=== PATIENT | female | born 1970 | race Caucasian/White ===

== ENCOUNTER → 2018-10-13 09:42 | Outpatient (POV) | payer OTHER, SELFPAY | PROVIDERS: Visit Provider Otolaryngology | DX: Z00.00 Encounter for general adult medical examination without abnormal findings (principal) ==

== ENCOUNTER → 2021-08-27 09:21 | Outpatient (CLI) | payer OTHER, SELFPAY | PROVIDERS: Visit Provider Nurse Practitioner | DX: Z20.822 Contact with and (suspected) exposure to COVID-19 (principal) | CPT/HCPCS: C9803; U0003; U0005 ==

== ENCOUNTER 2022-02-17 12:19 | Emergency (ER) | payer OTHER, SELFPAY ==
--- NOTE | 2022-02-17 12:56 | HMH.EDUTC ---
[facility] [place] Clinical Impression: Bronchitis Otitis media Qualifiers: Otitis media type: suppurative Chronicity: acute Laterality: bilateral Recurrence: non-recurrent Spontaneous tympanic membrane rupture: without spontaneous rupture Qualified Code(s): H66.003 - Acute suppurative otitis media without spontaneous rupture of ear drum, bilateral Sinusitis Qualifiers: Sinusitis location: unspecified location Chronicity: acute Recurrence: non-recurrent Qualified Code(s): J01.90 - Acute sinusitis, unspecified Disposition: Home, Self-Care Condition on Discharge: Good Instructions: DI for Sinusitis, DI for Acute Bronchitis, DI for COVID-19 (Suspected or Confirmed ), Preventing the Spread of Coronavirus Discharge Instructions Additional Instructions: Drink plenty of fluids. Take tylenol or ibuprofen for pain or fever. Take the medications as directed. Follow up with your regular doctor. GO TO THE ER FOR ANY WORSENING SYMPTOMS Quarantine until you know the results of your covid-19 test. Notify your school or workplace of your results and follow their instructions regarding return to work/school. Prescriptions: Ondansetron [Zofran 4mg ODT] 4 mg PO Q8HP PRN #12 tab PRN Reason: Nausea Transmission Status: Received by abeo # Benzonatate [Benzonatate 100mg cap] 100 mg PO TIDP PRN #30 cap PRN Reason: Cough Transmission Status: Received by abeo # methylPREDNISolone [Medrol] 4 mg PO DIRECTED 6 Days #21 packet Transmission Status: Received by abeo # Cefdinir [Omnicef 300mg Capsule] 300 mg PO BID #20 cap Transmission Status: Received by abeo # Referrals: Davide Vargas [Primary Care Provider] - Forms: Work/School Release Time of Disposition: 14:03 Medical Decision Making - Medical Records Medical records reviewed: No: I reviewed the patient's medical records. - Ruben Inquiry Pt receiving controlled substance: No Vital Signs: 02/17/22 13:05 02/17/22 14:23 Temperature 98.0 F 98.0 F Temperature Source Oral Pulse Rate 82 Pulse Rate [Left Radial] 82 Respiratory Rate 19 19 Blood Pressure 149/85 H Blood Pressure [Right Arm] 149/85 H Blood Pressure Mean [Right Arm] 106 02 Sat by Pulse Oximetry 98 - Lab Data Lab results reviewed: Yes: I reviewed the patient's lab results. Lab Results 02/17/22 14:20: Chlamy pneumoniae PCR Not detected, Adenovirus (PCR) Not detected, B. pertussis DNA (PCR) Not detected, Coronavirus OC43 (PCR) Not detected, Coronavirus HKU1 (PCR) Not detected, Coronavirus 229E (PCR) Not detected, SARS-CoV-2 (PCR) Detected A, Coronavirus NL63 (PCR) Not detected, Human Metapneumovir PCR Not detected, Influenza A (H1) PCR Not detected, Influ A (H1N1/09) PCR Not detected, Influenza A (H3) PCR Not detected, Influenza Type A (PCR) Not detected, Influenza Type B (PCR) Not detected, M. pneumoniae (PCR) Not detected, Parainfluenza 1 (PCR) Not detected, Parainfluenza 2 (PCR) Not detected, Parainfluenza 3 (PCR) Not detected, Parainfluenza 4 (PCR) Not detected, RSV (PCR) Not detected, Entero/Rhino (PCR) Not detected Orders (Tests/Meds): ED MEDICATIONS Discontinued Medications Generic Name Dose Route Start Last Admin Trade Name Freq PRN Reason Stop Dose Admin Cefdinir 300 mg 02/18/22 14:07 Cefdinir 300mg Capsule PO 02/18/22 14:08 ONCE ONE Cefdinir 300 mg 02/18/22 14:22 Cefdinir 300mg Capsule PO 02/18/22 14:23 ONCE ONE Prednisone 40 mg 02/17/22 14:07 02/17/22 14:18 Prednisone 20mg Tab PO 02/17/22 14:08 40 mg ONCE ONE Administration [facility] [place] - General Stated complaint: head congestion, cough Time Seen by Provider: 02/17/22 13:15 - History of Present Illness Provider Complaint: She c/o sinus and chest congestion for the past 5 days. - Related Data Previous Rx's Medication Instructions Recorded Benzonatate [Benzonata
--- NOTE | 2022-02-17 12:59 | XR_ITS ---
PROCEDURE INFORMATION: Exam: XR Chest Exam date and time: 02/17/2022 12:57 PM Age: 51 years old Clinical indication: Cough and shortness of breath TECHNIQUE: Imaging protocol: XR of the chest. Views: 2 views. COMPARISON: ABDPELW CT ABD PELVIS W/ CONTRAST 09/08/2017 1:29 PM FINDINGS: Lungs: Unremarkable. No consolidation. Pleural spaces: Unremarkable. No pleural effusion. No pneumothorax. Heart/Mediastinum: Unremarkable. No cardiomegaly. Bones/joints: Unremarkable. IMPRESSION: No acute findings.
[2022-02-17 13:05] VITALS: BP 149/85; PULSE 82; RESP 19; TEMP 36.7; O2SAT 98; BMI 32.5
[2022-02-17 14:23] VITALS: BP 149/85; PULSE 82; RESP 19; TEMP 36.7
[2022-02-17 15:22] LABS: Adenovirus,PCR Not Detected (NotDetected); Bordetella Pertussis Not Detected (NotDetected); Chlamydophila Pneumoniae, PCR Not Detected (NotDetected); Coronavirus 229E Not Detected (NotDetected); Coronavirus NL63 Not Detected (NotDetected); Coronavirus OC43 Not Detected (NotDetected); Coronovirus HKU1,PCR Not Detected (NotDetected); Human Metapneumovirus Not Detected (NotDetected); Influenza A, PCR Not Detected (NotDetected); Influenza AH1, 2009 Not Detected (NotDetected); Influenza AH1, PCR Not Detected (NotDetected); Influenza AH3,PCR Not Detected (NotDetected); Influenza B, PCR Not Detected (NotDetected); Mycoplasma Pneumoniae, PCR Not Detected (NotDetected); Parainfluenza 1, PCR Not Detected (NotDetected); Parainfluenza 2, PCR Not Detected (NotDetected); Parainfluenza 3, PCR Not Detected (NotDetected); Parainfluenza 4, PCR Not Detected (NotDetected); Respiratory Syncytial Virus Not Detected (NotDetected); Rhinovirus/Enterovirus Not Detected (NotDetected)
[2022-02-17 16:57] LABS: Coronavirus 19, PCR Detected (NotDetected)
== END 2022-02-17 14:24 | disposition home or self-care (01) ==
PROVIDERS: Emergency Provider Nurse Practitioner Family; PCP Family Medicine
DX: J20.9 Acute bronchitis, unspecified (principal); H66.003 Acute suppurative otitis media without spontaneous rupture of ear drum, bilateral; J01.90 Acute sinusitis, unspecified
CPT/HCPCS: 71046; 87581; 87632; 87798; 99212; C9803; G0463; U0003; U0005

== ENCOUNTER 2022-10-17 10:13 | Emergency (ER) | payer BC, SELFPAY ==
[2022-10-17 11:00] VITALS: BP 168/81; PULSE 109; RESP 20; TEMP 36.9; O2SAT 96; BMI 32.5
--- NOTE | 2022-10-17 11:01 | EXP.UTC ---
Discharge Plan Disposition Patient Disposition: Home, Self-Care Condition: Good Prescriptions Prescriptions: New azithromycin [Zithromax] 250 mg tablet 250 mg PO UD DOSE PK Qty: 6 0RF Rx Instructions: Take two (2) tablets today, then one (1) tablet days #2 thru #5 benzonatate [benzonatate] 100 mg capsule 100 mg PO TIDP PRN (Reason: Cough) Qty: 30 0RF methylprednisolone 4 mg Tablets,Dose Pack 4 mg PO DIRECTED Qty: 21 0RF guaifenesin [Mucinex] 600 mg tablet extended release 12hr 600 - 1,200 mg PO BIDP PRN (Reason: Congestion) Qty: 30 0RF Referrals Follow up/Referrals: Davide Vargas [Primary Care Provider] - See instructions Activity Restrictions/Add. Instructions Additional Instructions/Restrictions: Drink plenty of fluids. Take tylenol or ibuprofen for pain or fever. Take the medications as directed. Follow up with your regular doctor. GO TO THE ER FOR ANY WORSENING SYMPTOMS Clinical Impressions Clinical Impression: Bronchitis, Sinusitis Stand Alone Forms Stand Alone Forms: Work/School Release Instructions Patient Instructions: Sinusitis, DI for Sinusitis, DI for Acute Bronchitis Discharge ED Provider: Victoriano Salamanca [facility] [place] HPI General Stated complaint: Chest Congestion, sore throat Time Seen by Provider: 10/17/22 11:01 History of Present Illness Provider Complaint: She states that for the past 3 days she has had sore throat, sinus congestion, chest congestion, and a productive cough with yellowish sputum. Related Data Previous Rx's Medication Instructions Recorded azithromycin 250 mg tablet 250 mg PO UD DOSE PK #6 tabs 10/17/22 (Zithromax) benzonatate 100 mg capsule 100 mg PO TIDP PRN Cough #30 caps 10/17/22 guaifenesin 600 mg tablet, 600 - 1,200 mg PO BIDP PRN 10/17/22 extended release 12 hr (Mucinex) Congestion #30 tabs methylprednisolone 4 mg tablets in 4 mg PO DIRECTED #21 tabs 10/17/22 a dose pack Allergies Allergy/AdvReac Type Severity Reaction Status Date / Time No Known Drug Allergies Allergy Unknown Verified 10/17/22 11:16 [NO KNOWN DRUG ALLERGIES] [facility] Disclaimer: The information contained in this section may have been updated after the patient was seen, as this information can be updated by other users. Social History Smoking Status: Never smoker alcohol intake: never current occupational status: employed Travel in the last 8 weeks: None ROS Obtained: Yes All systems reviewed & no additional complaints except as documented Constitutional Constitutional: Reports poor appetite Eyes Eyes: Reports system reviewed and no additional complaints, except as documented ENT Ears, Nose, Mouth, and Throat: Reports as per HPI Cardiovascular Cardiovascular: Reports system reviewed and no additional complaints, except as documented and Denies chest pain Respiratory Respiratory: Denies shortness of breath, Reports chest congestion, Reports cough, Denies stridor and Denies wheezing Gastrointestinal Gastrointestingal: Reports system reviewed and no additional complaints, except as documented; Denies abdominal pain, diarrhea or vomiting Musculoskeletal Musculoskeletal: Reports system reviewed and no additional complaints, except as documented and Denies arthralgias Integumentary/Breasts Skin/Breast: Reports system reviewed and no additional complaints, except as documented and Denies rash Neurologic Neurologic: Denies paresthesias Allergic/Immunologic Allergic/Immunologic: Denies wheezing Physical Exam General General appearance: alert and in no apparent distress Eye Eye exam: Present normal appearance, PERRL and EOMI ENT ENT exam: Present mucous membranes moist and normal external ear exam Expanded ENT Exam External ear exam: Present normal external inspection TM/Canal exam: Bilateral TM: erythema and bulging Nose exam: Absent sinus tenderness Nasal speculum exam: Calvin
[2022-10-17 11:12] LABS: UTC Strep Screen (Rapid) Negative (Negative)
[2022-10-17 11:52] VITALS: BP 168/81; PULSE 109; RESP 20; TEMP 36.9; O2SAT 96
== END 2022-10-17 11:52 | disposition home or self-care (01) ==
PROVIDERS: Emergency Provider Nurse Practitioner Family; PCP Family Medicine
DX: J40 Bronchitis, not specified as acute or chronic (principal); J32.9 Chronic sinusitis, unspecified
CPT/HCPCS: 87880; 99212; 99213; G0463

== ENCOUNTER 2023-02-24 16:56 | Emergency (ER) | payer BC, SELFPAY ==
[2023-02-24 17:18] VITALS: BP 161/89; PULSE 90; RESP 16; TEMP 36.8; O2SAT 100; BMI 32.5
--- NOTE | 2023-02-24 17:27 | EXP.UTC ---
Discharge Plan Disposition Patient Disposition: Home, Self-Care Condition: Good Prescriptions Prescriptions: New promethazine-DM 6.25-15 mg/5 mL Syrup 5 ml PO Q6H PRN (Reason: Cough) Qty: 240 0RF azithromycin [Zithromax] 250 mg tablet 250 mg PO UD DOSE PK Qty: 6 0RF Rx Instructions: Take two (2) tablets today, then one (1) tablet days #2 thru #5 methylprednisolone 4 mg Tablets,Dose Pack 4 mg PO DIRECTED Qty: 21 0RF No Action levothyroxine 137 mcg tablet 137 mcg PO DAILY meloxicam 15 mg tablet 15 mg PO NEEDED PRN (Reason: Pain) zolpidem 10 mg tablet 10 mg PO HS escitalopram oxalate 20 mg Tablet 20 mg PO DAILY rosuvastatin 20 mg tablet 20 mg PO DAILY cholecalciferol (vitamin D3) [Vitamin D3] 50 mcg (2,000 unit) Capsule 50 mcg PO DAILY Referrals Follow up/Referrals: Davide Vargas [Primary Care Provider] - See instructions Activity Restrictions/Add. Instructions Additional Instructions/Restrictions: Drink plenty of fluids. Take tylenol for pain or fever. Take the medications as directed. Follow up with your regular doctor. GO TO THE ER FOR ANY WORSENING SYMPTOMS The cough medication (promethazine dm) will make you drowsy, so don't drive or operate heavy machinery after taking it. Clinical Impressions Clinical Impression: Sinusitis, Bronchitis Instructions Patient Instructions: Sinusitis, DI for Sinusitis Discharge ED Provider: Victoriano Salamanca [facility] [place] General Stated complaint: Sinus, Congestion, cough Mode of Arrival: Ambulatory Source of Information: Patient Limitations: No Limitations Time Seen by Provider: 02/24/23 17:27 Description of Symptoms (Recalled from Triage Doc. by RN): cough, sinus congestion/drainage HEENT Symptoms (Recalled from RN notes): Yes Resp Symptoms (Recalled from RN notes): Yes Skin Symptoms (Recalled from RN notes): No MS Symptoms (Recalled from RN notes): No Functional Status (Recalled from RN notes): n/a Related Data Home Medications Medication Instructions Recorded Confirmed cholecalciferol (vitamin D3) 50 50 mcg PO DAILY Supplement 02/24/23 02/24/23 mcg (2,000 unit) capsule (Vitamin D3) escitalopram oxalate 20 mg tablet 20 mg PO DAILY Depression 02/24/23 02/24/23 levothyroxine 137 mcg tablet 137 mcg PO DAILY Supplement 02/24/23 02/24/23 meloxicam 15 mg tablet 15 mg PO NEEDED PRN Pain 02/24/23 02/24/23 rosuvastatin 20 mg tablet 20 mg PO DAILY Cholesterol 02/24/23 02/24/23 zolpidem 10 mg tablet 10 mg PO HS sleep 02/24/23 02/24/23 Previous Rx's Medication Instructions Recorded azithromycin 250 mg tablet 250 mg PO UD DOSE PK #6 tabs 02/24/23 (Zithromax) methylprednisolone 4 mg tablets in 4 mg PO DIRECTED #21 tabs 02/24/23 a dose pack promethazine-DM 6.25 mg-15 mg/5 mL 5 ml PO Q6H PRN Cough #240 mL 02/24/23 oral syrup Allergies Allergy/AdvReac Type Severity Reaction Status Date / Time No Known Drug Allergies Allergy Unknown Verified 02/24/23 17:14 [NO KNOWN DRUG ALLERGIES] Worker's Comp Is this a Worker's Comp case?: No [facility] Disclaimer: The information contained in this section may have been updated after the patient was seen, as this information can be updated by other users. Medical History Depression Hyperlipidemia Hypothyroid Insomnia Surgical History H/O tubal ligation H/O: hysterectomy Hx laparoscopic cholecystectomy Family History Other No significant family history Social History Smoking Status: Never smoker alcohol intake: never current occupational status: employed Travel in the last 8 weeks: None ROS Obtained: Yes All systems reviewed & no additional complaints except as documented Constitutional Co
[2023-02-24 17:54] VITALS: BP 161/89; PULSE 90; RESP 18; TEMP 36.8; O2SAT 100
== END 2023-02-24 17:56 | disposition home or self-care (01) ==
PROVIDERS: Emergency Provider Nurse Practitioner Family; PCP Family Medicine
DX: J20.9 Acute bronchitis, unspecified (principal); J01.90 Acute sinusitis, unspecified; E03.9 Hypothyroidism, unspecified; E78.5 Hyperlipidemia, unspecified; F32.9 Major depressive disorder, single episode, unspecified
CPT/HCPCS: 99212; 99214; G0463

== ENCOUNTER 2023-05-23 10:51 | Emergency (ER) | payer BC, SELFPAY ==
[2023-05-23 10:51] VITALS: BP 148/94; PULSE 89; RESP 20; TEMP 36.3; O2SAT 97; BMI 34.3
--- NOTE | 2023-05-23 11:19 | EXP.UTC ---
Discharge Plan Disposition Patient Disposition: Home, Self-Care Condition: Good Prescriptions Prescriptions: New promethazine-DM 6.25-15 mg/5 mL Syrup 5 ml PO Q6H PRN (Reason: Cough) Qty: 240 0RF methylprednisolone 4 mg Tablets,Dose Pack 4 mg PO DIRECTED Qty: 21 0RF cefdinir 300 mg capsule 300 mg PO BID Qty: 20 0RF guaifenesin [Mucinex] 600 mg tablet extended release 12hr 600 - 1,200 mg PO BIDP PRN (Reason: Congestion) Qty: 30 0RF No Action levothyroxine 137 mcg tablet 137 mcg PO DAILY meloxicam 15 mg tablet 15 mg PO NEEDED PRN (Reason: Pain) zolpidem 10 mg tablet 10 mg PO HS escitalopram oxalate 20 mg Tablet 20 mg PO DAILY rosuvastatin 20 mg tablet 20 mg PO DAILY cholecalciferol (vitamin D3) [Vitamin D3] 50 mcg (2,000 unit) Capsule 50 mcg PO DAILY promethazine-DM 6.25-15 mg/5 mL Syrup 5 ml PO Q6H PRN (Reason: Cough) Qty: 240 0RF azithromycin [Zithromax] 250 mg tablet 250 mg PO UD DOSE PK Qty: 6 0RF Rx Instructions: Take two (2) tablets today, then one (1) tablet days #2 thru #5 methylprednisolone 4 mg Tablets,Dose Pack 4 mg PO DIRECTED Qty: 21 0RF Referrals Follow up/Referrals: Davide Vargas [Primary Care Provider] - See instructions Activity Restrictions/Add. Instructions Additional Instructions/Restrictions: Drink plenty of fluids. Take tylenol or ibuprofen for pain or fever. Take the medications as directed. Follow up with your regular doctor. GO TO THE ER FOR ANY WORSENING SYMPTOMS Clinical Impressions Clinical Impression: Bronchitis, Sinusitis Instructions Patient Instructions: Acute Bronchitis, DI for Sinusitis, DI for Acute Bronchitis Discharge ED Provider: Victoriano Salamanca [facility] General Stated complaint: congested, runny nose Mode of Arrival: Ambulatory Source of Information: Patient Limitations: No Limitations Time Seen by Provider: 05/23/23 11:19 Description of Symptoms (Recalled from Triage Doc. by RN): Patient reports cough and congestion for 2 days. HEENT Symptoms (Recalled from RN notes): Yes Resp Symptoms (Recalled from RN notes): No Skin Symptoms (Recalled from RN notes): No MS Symptoms (Recalled from RN notes): No Functional Status (Recalled from RN notes): wnl History of Present Illness Provider Complaint: She states that for the past 2 days she has had chest congestion, productive cough with yellowish sputum, sinus congestion and malaise. Related Data Home Medications Medication Instructions Recorded Confirmed cholecalciferol (vitamin D3) 50 50 mcg PO DAILY Supplement 02/24/23 02/24/23 mcg (2,000 unit) capsule (Vitamin D3) escitalopram oxalate 20 mg tablet 20 mg PO DAILY Depression 02/24/23 02/24/23 levothyroxine 137 mcg tablet 137 mcg PO DAILY Supplement 02/24/23 02/24/23 meloxicam 15 mg tablet 15 mg PO NEEDED PRN Pain 02/24/23 02/24/23 rosuvastatin 20 mg tablet 20 mg PO DAILY Cholesterol 02/24/23 02/24/23 zolpidem 10 mg tablet 10 mg PO HS sleep 02/24/23 02/24/23 Previous Rx's Medication Instructions Recorded azithromycin 250 mg tablet 250 mg PO UD DOSE PK #6 tabs 02/24/23 (Zithromax) methylprednisolone 4 mg tablets in 4 mg PO DIRECTED #21 tabs 02/24/23 a dose pack promethazine-DM 6.25 mg-15 mg/5 mL 5 ml PO Q6H PRN Cough #240 mL 02/24/23 oral syrup cefdinir 300 mg capsule 300 mg PO BID #20 caps 05/23/23 guaifenesin 600 mg tablet, 600 - 1,200 mg PO BIDP PRN 05/23/23 extended release 12 hr (Mucinex) Congestion #30 tabs methylprednisolone 4 mg tablets in 4 mg PO DIRECTED #21 tabs 05/23/23 a dose pack promethazine-DM 6.25 mg-15 mg/5 mL 5 ml PO Q6H PRN Cough #240 mL 05/23/23 oral syrup Allergies Allergy/AdvReac Type Severity Reaction Status Date / Time No Known Drug Allergies Allergy Unknown Verified 02/24/23 17:14 [NO KNOWN DRUG ALLERGIES] Worker's Comp Is this a Worker's Comp case?: No [facility] Disclaimer: The info
[2023-05-23 11:49] VITALS: BP 148/94; PULSE 89; RESP 20; TEMP 36.3; O2SAT 97
== END 2023-05-23 11:50 | disposition home or self-care (01) ==
PROVIDERS: Emergency Provider Nurse Practitioner Family; PCP Family Medicine
DX: J20.9 Acute bronchitis, unspecified (principal); J01.90 Acute sinusitis, unspecified; R53.81 Other malaise; E03.9 Hypothyroidism, unspecified; E78.5 Hyperlipidemia, unspecified; G47.00 Insomnia, unspecified; F32.A Depression, unspecified
CPT/HCPCS: 99212; 99214; G0463

== ENCOUNTER 2023-06-15 14:34 | Emergency (ER) | payer BC, SELFPAY ==
[2023-06-15 14:34] VITALS: BP 145/92; PULSE 100; RESP 18; TEMP 36.7; O2SAT 96; BMI 37.3
--- NOTE | 2023-06-15 14:44 | XR_ITS ---
PROCEDURE INFORMATION: Exam: XR Chest Exam date and time: 06/15/2023 2:43 PM Age: 52 years old Clinical indication: Cough; Additional info: Cough and congestion TECHNIQUE: Imaging protocol: Radiologic exam of the chest. Views: 2 views. COMPARISON: CR XR CHEST 2V 02/17/2022 12:57 PM FINDINGS: Lungs: No evidence of acute airspace consolidation. No pulmonary edema. Pleural spaces: No significant pleural effusion. No pneumothorax. Heart/Mediastinum: Cardiomediastinal silouhette is within normal limits. Bones/joints: No evidence of acute osseous abnormality. IMPRESSION: No acute findings.
--- NOTE | 2023-06-15 14:51 | EXP.UTC ---
Discharge Plan Disposition Patient Disposition: Home, Self-Care Condition: Good Prescriptions Prescriptions: New azithromycin [Zithromax Z-Chris] 250 mg tablet See Rx Instructions .ROUTE .COMPLEX 5 Days Qty: 6 0RF Rx Instructions: For 250 mg dose pack: take 500 mg today (day 1), then 250 mg for 4 days (days 2-5) benzonatate 100 mg capsule 100 mg PO TID PRN (Reason: cough) Qty: 30 0RF methylprednisolone [Medrol (Chris)] 4 mg tablets,dose pack See Rx Instructions .Route .COMPLEX 6 Days Qty: 21 0RF Rx Instructions: taper pack; No Action levothyroxine 137 mcg tablet 137 mcg PO DAILY meloxicam 15 mg tablet 15 mg PO NEEDED PRN (Reason: Pain) zolpidem 10 mg tablet 10 mg PO HS escitalopram oxalate 20 mg Tablet 20 mg PO DAILY rosuvastatin 20 mg tablet 20 mg PO DAILY guaifenesin [Mucinex] 600 mg tablet extended release 12hr 600 - 1,200 mg PO BIDP PRN (Reason: Congestion) Qty: 30 0RF ergocalciferol (vitamin D2) [Drisdol] 1,250 mcg (50,000 unit) capsule 1,250 mcg PO WEEKLY Patient Comments: TAKE 1 CAPSULE BY MOUTH EVERY 7 DAYS Referrals Follow up/Referrals: Davide Vargas [Primary Care Provider] - See instructions Clinical Impressions Clinical Impression: Bronchitis Instructions Patient Instructions: Acute Bronchitis Discharge ED Provider: Rossi Mendosa [facility] [place] HPI General Stated complaint: congestion Mode of Arrival: Ambulatory Source of Information: Patient Limitations: No Limitations Time Seen by Provider: 06/15/23 14:51 Description of Symptoms (Recalled from Triage Doc. by RN): pt stated that she was seen 05/23/2023 took abx, and steroid. It has bot helped. She states that she gets into a coughing fit and causes her to wheeze. She has chest congestion. HEENT Symptoms (Recalled from RN notes): Yes Resp Symptoms (Recalled from RN notes): No Skin Symptoms (Recalled from RN notes): No MS Symptoms (Recalled from RN notes): No Functional Status (Recalled from RN notes): n/a History of Present Illness Provider Complaint: Patient states that she was seen a few weeks ago and dx with Bronchitis States that she was on 10 days of antibiotics and she felt better for a couple days then it returned States that she will get in coughing fits and then will start wheezing a little and getting hoarse so today when it was still not better she came in to get checked Related Data Home Medications Medication Instructions Recorded Confirmed escitalopram oxalate 20 mg tablet 20 mg PO DAILY Depression 02/24/23 06/15/23 levothyroxine 137 mcg tablet 137 mcg PO DAILY Supplement 02/24/23 06/15/23 meloxicam 15 mg tablet 15 mg PO NEEDED PRN Pain 02/24/23 02/24/23 rosuvastatin 20 mg tablet 20 mg PO DAILY Cholesterol 02/24/23 06/15/23 zolpidem 10 mg tablet 10 mg PO HS sleep 02/24/23 06/15/23 ergocalciferol (vitamin D2) 1,250 1,250 mcg PO WEEKLY Supplement 06/15/23 06/15/23 mcg (50,000 unit) capsule (Drisdol) Previous Rx's Medication Instructions Recorded guaifenesin 600 mg tablet, 600 - 1,200 mg PO BIDP PRN 05/23/23 extended release 12 hr (Mucinex) Congestion #30 tabs azithromycin 250 mg tablet See Rx Instructions PO .COMPLEX 5 06/15/23 (Zithromax Z-Chris) days #6 tabs benzonatate 100 mg capsule 100 mg PO TID PRN cough #30 caps 06/15/23 methylprednisolone 4 mg tablets in See Rx Instructions .Route 06/15/23 a dose pack (Medrol (Chris)) .COMPLEX 6 days #21 tabs Allergies Allergy/AdvReac Type Severity Reaction Status Date / Time No Known Drug Allergies Allergy Unknown Verified 06/15/23 14:48 [NO KNOWN DRUG ALLERGIES] Worker's Comp Is this a Worker's Comp case?: No [facility] Disclaimer: The information contained in this section may have been updated after the patient was seen, as this information can be updated by other users. Medical History Depression Hyperlipidemia Hypothyroid Ins
[2023-06-15 15:59] VITALS: BP 145/92; PULSE 100; RESP 18; TEMP 36.7; O2SAT 96
== END 2023-06-15 15:59 | disposition home or self-care (01) ==
PROVIDERS: Emergency Provider Nurse Practitioner; PCP Family Medicine
DX: J20.9 Acute bronchitis, unspecified (principal); E03.9 Hypothyroidism, unspecified; E78.5 Hyperlipidemia, unspecified; G47.00 Insomnia, unspecified; F32.A Depression, unspecified
CPT/HCPCS: 71046; 99212; 99214; G0463

== ENCOUNTER 2023-10-17 15:56 | Emergency (ER) | payer SELFPAY ==
[2023-10-17 16:05] VITALS: BP 136/90; PULSE 89; RESP 19; TEMP 36.8; O2SAT 98; BMI 32.1
--- NOTE | 2023-10-17 16:14 | ED_ITS ---
Discharge Plan Disposition Patient Disposition: Home, Self-Care Condition: Good Prescriptions Prescriptions: New prednisone 20 mg tablet 20 mg PO BID Qty: 10 0RF azithromycin [Zithromax Z-Chris] 250 mg tablet See Rx Instructions .ROUTE .COMPLEX Qty: 6 0RF Rx Instructions: For 250 mg dose pack: take 500 mg today (day 1), then 250 mg for 4 days (days 2-5) No Action levothyroxine 137 mcg tablet 137 mcg PO DAILY zolpidem 10 mg tablet 10 mg PO HS escitalopram oxalate 20 mg Tablet 20 mg PO DAILY diclofenac sodium 75 mg tablet,delayed release (DR/EC) 75 mg PO DAILY Patient Comments: TAKE 1 TABLET BY MOUTH TWICE DAILY rosuvastatin 20 mg tablet 20 mg PO DAILY Patient Comments: TAKE 1 TABLET BY MOUTH EVERY NIGHT Referrals Follow up/Referrals: Davide Vargas [Primary Care Provider] - See instructions Clinical Impressions Clinical Impression: Bronchitis Instructions Patient Instructions: DI for Acute Bronchitis Discharge ED Provider: Alesia Herr [facility] HPI General Stated complaint: cough, scratchy throat Time Seen by Provider: 10/17/23 16:14 History of Present Illness Provider Complaint: Cough, congestion, wheezing X 2 days. Onset (ago): day(s) (2) Location: chest Relieving factors: none Exacerbating factors: none Associated symptoms: cough Treatments prior to arrival: none Related Data Home Medications Medication Instructions Recorded Confirmed escitalopram oxalate 20 mg tablet 20 mg PO DAILY Depression 02/24/23 10/17/23 levothyroxine 137 mcg tablet 137 mcg PO DAILY Supplement 02/24/23 10/17/23 zolpidem 10 mg tablet 10 mg PO HS sleep 02/24/23 10/17/23 diclofenac sodium 75 mg 75 mg PO DAILY 10/17/23 10/17/23 tablet,delayed release rosuvastatin 20 mg tablet 20 mg PO DAILY 10/17/23 10/17/23 Previous Rx's Medication Instructions Recorded azithromycin 250 mg tablet See Rx Instructions PO .COMPLEX #6 10/17/23 (Zithromax Z-Chris) tabs prednisone 20 mg tablet 20 mg PO BID #10 tabs 10/17/23 Allergies Allergy/AdvReac Type Severity Reaction Status Date / Time No Known Drug Allergies Allergy Unknown Verified 06/15/23 14:48 [NO KNOWN DRUG ALLERGIES] [facility] Disclaimer: The information contained in this section may have been updated after the patient was seen, as this information can be updated by other users. Medical History Depression Hyperlipidemia Hypothyroid Insomnia Surgical History H/O tubal ligation H/O: hysterectomy Hx laparoscopic cholecystectomy Family History Other No significant family history Social History Smoking Status: Never smoker alcohol intake: never current occupational status: employed Travel in the last 8 weeks: None ROS Obtained: Yes All systems reviewed & no additional complaints except as documented and Yes Systems reviewed as appropriate & no additional complaints except as documented Constitutional Constitutional: Reports system reviewed and no additional complaints, except as documented and Reports as per HPI ENT Ears, Nose, Mouth, and Throat: Reports system reviewed and no additional complaints, except as documented and Reports as per HPI Cardiovascular Cardiovascular: Reports system reviewed and no additional complaints, except as documented and Reports as per HPI Respiratory Respiratory: Reports system reviewed and no additional complaints, except as documented, Reports as per HPI, Reports shortness of breath, Reports chest congestion, Reports cough and Reports wheezing Allergic/Immunologic Allergic/Immunologic: Reports wheezing Physical Exam General General appearance: alert and in no apparent distress Head Head exam: atraumatic, normocephalic and normal inspection Eye Eye exam: Present normal appearance, PERRL and EOMI ENT ENT exam: Present normal exam, normal oropharynx, mucous membranes moist, TM's normal bilaterally and normal external ear exam Neck Neck exam: Present normal inspection, full ROM and trachea midline; Absent meningismus or lymphadenopathy Chest Chest inspection: Present normal inspection and symmetric chest wall rise; Absent tenderness Respiratory Respiratory exam: Present wheezes; Absent respiratory distress Cardiovascular Cardiovascular exam: Present regular rate and normal rhythm; Absent JVD Abdominal Exam Abdominal exam: Present soft and normal bowel sounds; Absent distention, tenderness or guarding Extremities Exam Extremities exam: Present normal inspection, full ROM and normal capillary refill; Absent calf tenderness Back Exam Back exam: Present normal inspection; Absent tenderness Neurological Exam Neurological exam: Present alert and oriented X3 Psychiatric Psychiatric exam: Present normal affect and normal mood Skin Skin exam: Present warm, dry, intact and normal color Lymphatic Lymphatic Findings: no adenopathy Medical Decision Making Ruben Inquiry Pt receiving controlled substance: No
[2023-10-17 16:38] VITALS: BP 136/90; PULSE 89; RESP 19; TEMP 36.8; O2SAT 98
== END 2023-10-17 16:40 | disposition home or self-care (01) ==
PROVIDERS: Emergency Provider Physician Assistant; PCP Family Medicine
DX: J20.9 Acute bronchitis, unspecified (principal); R05.9 Cough, unspecified; R06.2 Wheezing; R09.89 Other specified symptoms and signs involving the circulatory and respiratory systems; E03.9 Hypothyroidism, unspecified; E78.5 Hyperlipidemia, unspecified
CPT/HCPCS: 99212; 99214; G0463

== ENCOUNTER 2024-03-26 11:18 | Emergency (ER) | payer SELFPAY ==
[2024-03-26 11:25] VITALS: BP 137/66; PULSE 72; RESP 22; TEMP 36.5; O2SAT 100; BMI 32.5
--- NOTE | 2024-03-26 11:56 | ED_ITS ---
Discharge Plan Disposition Patient Disposition: Home, Self-Care Condition: Good Prescriptions Prescriptions: New azithromycin [Zithromax] 250 mg tablet 250 mg PO UD DOSE PK Qty: 6 0RF Rx Instructions: Take two (2) tablets today, then one (1) tablet days #2 thru #5 benzonatate 100 mg capsule 100 mg PO TIDP PRN (Reason: Cough) Qty: 30 0RF methylprednisolone 4 mg Tablets,Dose Pack 4 mg PO DIRECTED 6 Days Qty: 21 0RF Rx Instructions: Take 1 pack as directed for 6 days guaifenesin [Mucinex] 600 mg tablet extended release 12hr 600 - 1,200 mg PO BIDP PRN (Reason: Congestion) Qty: 30 0RF No Action zolpidem 10 mg tablet 10 mg PO HS escitalopram oxalate 20 mg Tablet 20 mg PO DAILY levothyroxine 150 mcg tablet 150 mcg PO DAILY Patient Comments: TAKE 1 TABLET BY MOUTH DAILY ergocalciferol (vitamin D2) 1,250 mcg (50,000 unit) capsule 1,250 mcg PO WEEKLY Patient Comments: TAKE 1 CAPSULE BY MOUTH EVERY 7 DAYS diclofenac sodium 75 mg tablet,delayed release (DR/EC) 75 mg PO DAILY Patient Comments: TAKE 1 TABLET BY MOUTH TWICE DAILY rosuvastatin 20 mg tablet 20 mg PO DAILY Patient Comments: TAKE 1 TABLET BY MOUTH EVERY NIGHT Referrals Follow up/Referrals: Davide Vargas [Primary Care Provider] - See instructions Clinical Impressions Clinical Impression: Bronchitis Instructions Patient Instructions: Acute Bronchitis, DI for Acute Bronchitis Discharge ED Provider: Victoriano Salamanca [facility] General Stated complaint: chest congestion Mode of Arrival: Ambulatory Source of Information: Patient Limitations: No Limitations Time Seen by Provider: 03/26/24 11:55 Description of Symptoms (Recalled from Triage Doc. by RN): PATIENT C/O COUGH AND CONGESTION X 1 WEEK HEENT Symptoms (Recalled from RN notes): Yes Resp Symptoms (Recalled from RN notes): Yes Skin Symptoms (Recalled from RN notes): No MS Symptoms (Recalled from RN notes): No Functional Status (Recalled from RN notes): WNL Related Data Home Medications Medication Instructions Recorded Confirmed escitalopram oxalate 20 mg tablet 20 mg PO DAILY Depression 02/24/23 03/26/24 zolpidem 10 mg tablet 10 mg PO HS sleep 02/24/23 03/26/24 diclofenac sodium 75 mg 75 mg PO DAILY 10/17/23 03/26/24 tablet,delayed release rosuvastatin 20 mg tablet 20 mg PO DAILY 10/17/23 03/26/24 ergocalciferol (vitamin D2) 1,250 1,250 mcg PO WEEKLY 03/26/24 03/26/24 mcg (50,000 unit) capsule levothyroxine 150 mcg tablet 150 mcg PO DAILY 03/26/24 03/26/24 Previous Rx's Medication Instructions Recorded azithromycin 250 mg tablet 250 mg PO UD DOSE PK #6 tabs 03/26/24 (Zithromax) benzonatate 100 mg capsule 100 mg PO TIDP PRN Cough #30 caps 03/26/24 guaifenesin 600 mg tablet, 600 - 1,200 mg (1 - 2 x 600 mg) PO 03/26/24 extended release 12 hr (Mucinex) BIDP PRN Congestion #30 tabs methylprednisolone 4 mg tablets in 4 mg PO DIRECTED 6 days #21 tabs 03/26/24 a dose pack Allergies Allergy/AdvReac Type Severity Reaction Status Date / Time No Known Drug Allergies Allergy Unknown Verified 06/15/23 14:48 [NO KNOWN DRUG ALLERGIES] Worker's Comp Is this a Worker's Comp case?: No [facility] Disclaimer: The information contained in this section may have been updated after the patient was seen, as this information can be updated by other users. Medical History (Updated 03/26/24 @ 12:23 by Victoriano Salamanca APRN) COPD (chronic obstructive pulmonary disease) Anxiety Depression Insomnia Hyperlipidemia Hypothyroid Surgical History H/O tubal ligation H/O: hysterectomy Hx laparoscopic cholecystectomy Family History Other No significant family history Social History Smoking Status: Never smoker alcohol intake: never current occupational status: employed Travel in the last 8 weeks: None ROS Obtained: Yes All systems reviewed & no additional complaints except as documented Constitutional Constitutional: Reports poor appetite Eyes Eyes: Reports system reviewed and no additional complaints, except as documented ENT Ears, Nose, Mouth, and Throat: Reports as per HPI Cardiovascular Cardiovascular: Reports system reviewed and no additional complaints, except as documented and Denies chest pain Respiratory Respiratory: Denies shortness of breath, Reports chest congestion, Reports cough, Denies stridor and Denies wheezing Gastrointestinal Gastrointestingal: Reports system reviewed and no additional complaints, except as documented; Denies abdominal pain, diarrhea or vomiting Musculoskeletal Musculoskeletal: Reports system reviewed and no additional complaints, except as documented and Denies arthralgias Integumentary/Breasts Skin/Breast: Reports system reviewed and no additional complaints, except as documented and Denies rash Neurologic Neurologic: Denies paresthesias Allergic/Immunologic Allergic/Immunologic: Denies wheezing Physical Exam General General appearance: alert and in no apparent distress Eye Eye exam: Present normal appearance, PERRL and EOMI ENT ENT exam: Present mucous membranes moist and normal external ear exam Expanded ENT Exam External ear exam: Present normal external inspection TM/Canal exam: Bilateral TM: erythema and bulging Nose exam: Absent sinus tenderness Nasal speculum exam: Bilateral: normal Mouth exam: Present normal external inspection; Absent drooling Teeth exam: Present normal inspection Throat exam: Present tonsillar erythema and tonsillomegaly Neck Neck exam: Present normal inspection, full ROM and trachea midline; Absent tenderness, lymphadenopathy or thyromegaly Chest Chest inspection: Present normal inspection and symmetric chest wall rise; Absent tenderness or rash Respiratory Respiratory exam: Present normal lung sounds bilaterally; Absent respiratory distress, wheezes, stridor or accessory muscle use Cardiovascular Cardiovascular exam: Present regular rate, normal rhythm and normal heart sounds Abdominal Exam Abdominal exam: Present soft; Absent distention, tenderness, guarding, rebound or rigidity Extremities Exam Extremities exam: Present normal inspection, full ROM and normal capillary refill; Absent tenderness or calf tenderness Back Exam Back exam: Present normal inspection and full ROM; Absent tenderness Neurological Exam Neurological exam: Present alert and oriented X3 Psychiatric Psychiatric exam: Present normal affect and normal mood Skin Skin exam: Present warm, dry, intact and normal color Lymphatic Lymphatic Findings: no adenopathy Medical Decision Making Medical Records Medical records reviewed: No I reviewed the patient's medical records. Ruben Inquiry Pt receiving controlled substance: No Vital Signs: 03/26/24 11:25 Temperature 97.7 F Temperature Source Oral Pulse Rate [Left Brachial] 72 Respiratory Rate 22 Blood Pressure [Left Arm] 137/66 Blood Pressure Mean [Left Arm] 89 Blood Pressure Source [Left Arm] Automatic Cuff Blood Pressure Position [Left Arm] Sitting 02 Sat by Pulse Oximetry 100 Oxygen Delivery Method Room Air
[2024-03-26] MEDS: IPRATROPIUM/ALBUTEROL 3 ML NEB IH (12:12)
[2024-03-26 12:18] VITALS: BP 137/66; PULSE 72; RESP 22; TEMP 36.5; O2SAT 100
== END 2024-03-26 12:21 | disposition home or self-care (01) ==
PROVIDERS: Emergency Provider Nurse Practitioner Family; PCP Family Medicine
DX: J20.9 Acute bronchitis, unspecified (principal); R05.9 Cough, unspecified
CPT/HCPCS: 96372; 99212; 99214; G0463; J7620